=== PATIENT | female | born 1995 | race Caucasian/White ===

== ENCOUNTER 2018-02-17 23:45 | Emergency (ER) | payer OTHER ==
[~2018-02-17] VITALS: Ht 165.1 cm; Wt 95.3 kg
[~2018-02-17 23:45] MED LIST: VIC PO
[2018-02-17 23:50] VITALS: Ht 165.1 cm; Wt 95.3 kg
[2018-02-18 01:18] VITALS: BP 145/86
== END 2018-02-18 01:18 | disposition home or self-care (01) ==
LOC: ED 23:45
DX: S70.12XA Contusion of left thigh, initial encounter (principal); W23.0XXA Caught, crushed, jammed, or pinched between moving objects, initial encounter; Y93.89 Activity, other specified; Y92.810 Car as the place of occurrence of the external cause; Y99.8 Other external cause status